=== PATIENT | male | born 1995 | race Two or more races ===

== ENCOUNTER 2023-09-17 15:49 | Emergency (ER) | payer SELFPAY ==
[2023-09-17 15:53] VITALS: BP 148/76; PULSE 71; RESP 18; TEMP 97.7; BMI 31.0
[2023-09-17] MEDS ORDERED: IBUPROFEN 600 MG TABLET (FP) PO ONE (16:14)
[2023-09-17] MEDS ORDERED: ACETAMINOPHEN 500 MG TABLET (FP) ONE (16:14)
[2023-09-17] MEDS: IBUPROFEN 600 MG TABLET (FP) PO ONE (16:15)
[2023-09-17] MEDS: ACETAMINOPHEN 500 MG TABLET (FP) PO ONE (16:15)
== END 2023-09-17 16:38 | disposition home or self-care (01) ==
LOC: JERFT 15:49
DX: M79.672 Pain in left foot (principal); X50.1XXA Overexertion from prolonged static or awkward postures, initial encounter
CPT/HCPCS: 73630-TC-LT; 99283-25